=== PATIENT | female | born 1980 | race Two or more races ===

== ENCOUNTER 2017-12-27 01:44 | Emergency (ER) | payer MEDICAID, OTHER ==
[~2017-12-27] VITALS: Ht 162.6 cm; Wt 56.7 kg
[2017-12-27 01:50] VITALS: BP 114/73
== END 2017-12-27 04:14 | disposition left against medical advice (07) ==
LOC: ER 01:44
DX: R07.81 Pleurodynia (principal); M25.532 Pain in left wrist; M25.531 Pain in right wrist; Z53.21 Procedure and treatment not carried out due to patient leaving prior to being seen by health care provider; V49.59XA Passenger injured in collision with other motor vehicles in traffic accident, initial encounter; Y93.89 Activity, other specified; Y99.8 Other external cause status; Y92.89 Other specified places as the place of occurrence of the external cause
CPT/HCPCS: 71046; 73110

== ENCOUNTER 2018-01-10 15:11 | Emergency (ER) | payer SELFPAY ==
[~2018-01-10] VITALS: Ht 162.6 cm; Wt 58.1 kg
[2018-01-10 15:45] VITALS: BP 122/61
== END 2018-01-10 20:57 | disposition home or self-care (01) ==
LOC: ER 15:11
DX: S22.31XA Fracture of one rib, right side, initial encounter for closed fracture (principal); V43.52XA Car driver injured in collision with other type car in traffic accident, initial encounter; Y93.89 Activity, other specified; Y99.8 Other external cause status; Y92.410 Unspecified street and highway as the place of occurrence of the external cause
CPT/HCPCS: 71250